=== PATIENT | female | born 1935 | race Caucasian/White ===

== ENCOUNTER → 2016-02-17 | Outpatient (CLI) | payer MEDICARE, OTHER ==
[~2016-02-17] MED LIST: AML5T; AMLO2.5T; AMLO5TAB2 PO; CALC1CAP21 PO; CHOL4PAC2 PO; CLD600T; ENAL20TA PO; ENAL20TA76; ESTR0.5T PO; ESTR0.5T3; HYDR-3583 PO; I CAPS PO; I-CAPS; LACT1CAP45; LACT1CAP8 PO; MULT-608; MULT-856 PO; RANI-10; RANI150T90 PO; TRAM50TA2
--- NOTE | 2016-02-17 12:39 | Diagnostic Imaging Report ---
INDICATION: Cough for approximately 1 month. TECHNIQUE: PA and lateral views of the chest were obtained. COMPARISON: 07/27/2013. IMPRESSION: The heart size and pulmonary vascularity are within normal limits. Calcifications within the left lung may be due to granuloma formation; however, no acute infiltrate or other acute abnormality is identified. Dictated by: Dictated on workstation # [id number]
== END ==
LOC: RAD 12:15
PROVIDERS: ATTEND Family Medicine
DX: R05 Cough (principal); R09.89 Other specified symptoms and signs involving the circulatory and respiratory systems
CPT/HCPCS: 71020

== ENCOUNTER → 2016-10-30 | Outpatient (CLI) | payer MEDICARE, OTHER ==
--- NOTE | 2016-10-30 09:45 | Diagnostic Imaging Report ---
PROCEDURE: US abdomen complete. TECHNIQUE: Multiple real-time grayscale images were obtained over the abdomen in various projections. INDICATION: Renal atrophy. Left renal cyst. COMPARISON: 04/04/2014. FINDINGS: The visualized portions of the pancreas appear unremarkable. The liver is hyperechoic and attenuates the ultrasound beam suggestive of fatty infiltration or hepatitis. There is hepatopetal flow in the portal vein noted. The right kidney is 7.4 cm, and the left kidney is 10.8 cm in length. There is cortical atrophy seen. There is a parapelvic cyst in the left kidney measuring up to 3 cm in size with no solid component identified. This appears similar to previous exam from 2014. The CBD is 4 mm in caliber. The gallbladder has been removed. The spleen is not enlarged measuring 9 cm in length. No fluid collection or free fluid of significance seen in the abdomen or pelvis. The visualized portions of the abdominal aorta and IVC appear unremarkable. The distal abdominal aorta is obscured. IMPRESSION: 1. Renal atrophy particularly in the right kidney. No hydronephrosis or focal solid lesion. 2. Hyperechoic liver parenchyma may relate to fatty infiltration or hepatitis. Dictated on workstation # [id number]
== END ==
LOC: RAD 07:33
PROVIDERS: ATTEND Family Medicine
DX: K76.9 Liver disease, unspecified (principal); N26.1 Atrophy of kidney (terminal); N28.1 Cyst of kidney, acquired; Z90.49 Acquired absence of other specified parts of digestive tract
CPT/HCPCS: 76700